=== PATIENT | female | born 1970 | race Caucasian/White ===

== ENCOUNTER 2017-05-30 08:21 | Emergency (ER) | payer OTHER ==
[~2017-05-30] VITALS: Ht 162.6 cm; Wt 82.6 kg
[2017-05-30 09:50] VITALS: BP 168/81
[2017-05-30] MEDS ORDERED: KETOROLAC 30 MG/1 ML ONE (10:21)
[2017-05-30] MEDS ORDERED: KETOROLAC 30 MG/1 ML IM ONE (10:30)
== END 2017-05-30 12:11 | disposition home or self-care (01) ==
LOC: ED 11:50
DX: M71.22 Synovial cyst of popliteal space [Baker], left knee (principal); F17.210 Nicotine dependence, cigarettes, uncomplicated
CPT/HCPCS: 73564; 93971; 96372; 99284; J1885